=== PATIENT | female | born 1990 | race African-American/Black ===

== ENCOUNTER 2019-11-01 08:21 | Emergency (ER) | payer MEDICAID ==
[~2019-11-01] VITALS: Ht 167.6 cm; Wt 81.0 kg
[2019-11-01 09:54] VITALS: BP 130/82
== END 2019-11-01 10:03 | disposition home or self-care (01) ==
LOC: ER 08:21
DX: J39.9 Disease of upper respiratory tract, unspecified (principal); R19.7 Diarrhea, unspecified; Z98.890 Other specified postprocedural states
CPT/HCPCS: 81025; 99283

== ENCOUNTER 2021-03-02 07:33 | Emergency (ER) | payer BC, MEDICAID ==
[~2021-03-02] VITALS: Ht 172.7 cm; Wt 91.0 kg
[2021-03-02 07:55] VITALS: BP 162/103
[2021-03-02] MEDS ORDERED: HYDROCODONE/ACETAMINOPHEN 5/325MG TABLET PO ONE (08:45)
[2021-03-02] MEDS ORDERED: KETOROLAC 60MG/2ML VIAL IM ONE (08:45)
[2021-03-02] MEDS ORDERED: CYCL10TA7 MT (08:56)
[2021-03-02] MEDS ORDERED: IBUP-2028 MT (08:56)
[2021-03-02] MEDS ORDERED: HYDR-4001 MT (08:56)
[2021-03-03] MEDS ORDERED: IBUP-2028 MT (15:58)
[2021-03-03] MEDS ORDERED: CYCL10TA7 MT (15:58)
[2021-03-03] MEDS ORDERED: HYDR-4001 MT (15:58)
== END 2021-03-02 09:38 | disposition home or self-care (01) ==
LOC: ER 07:33
DX: M54.12 Radiculopathy, cervical region (principal)
CPT/HCPCS: 96372; 99283; J1885